=== PATIENT | female | born 1980 | race Caucasian/White ===

== ENCOUNTER 2017-09-08 16:48 | Emergency (ER) | payer OTHER ==
[2017-09-08 16:58] VITALS: BP 116/74
[2017-09-08] MEDS ORDERED: LIDOCAINE VISCOUS 2% PO ONE (22:12)
[2017-09-08] MEDS ORDERED: NACL 0.9% IR ONE (22:12)
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
== END 2017-09-09 00:10 | disposition home or self-care (01) ==
LOC: ED 16:48
DX: S20.319A Abrasion of unspecified front wall of thorax, initial encounter (principal); J39.2 Other diseases of pharynx; W25.XXXA Contact with sharp glass, initial encounter; Y93.89 Activity, other specified; Y92.89 Other specified places as the place of occurrence of the external cause; Y99.8 Other external cause status